=== PATIENT | female | born 1995 | race Caucasian/White ===

== ENCOUNTER 2021-05-11 19:10 | Emergency (ER) | payer BC ==
[~2021-05-11] VITALS: Ht 160 cm; Wt 63.9 kg
--- NOTE | 2021-05-11 19:55 | PHYS DOC ---
General Adult EDM: Chief Complaint: MULTIPLE COMPLAINTS HPI: HPI: Patient is a 25-year-old female who presents to the emergency department for multiple complaints. Patient reports that she was diagnosed with COVID-19 1 month ago and following her diagnosis she experienced fatigue, body aches, headache, lightheadedness with position changes, hand and foot swelling and paresthesias, nasal congestion, shortness of breath, headaches. Patient denies nausea, vomiting, cough, fever. Patient stated that she did a virtual telehealth visit and they asked her about her possible Lyme disease exposure. Patient reports that a month ago she found a tick on her cat but was unsure if she ever had a tick on her so she was concerned after her telehealth visit that she may have Lyme disease. (ROSA MARX APRN) Review of Systems: Review of Systems: Constitutional: negative unless reported in HPI Eyes: negative unless reported in HPI HENT: negative unless reported in HPI Respiratory: negative unless reported in HPI Cardiovascular: negative unless reported in HPI GI: negative unless reported in HPI : negative unless reported in HPI Musculoskeletal: negative unless reported in HPI Integument: negative unless reported in HPI Neurologic: negative unless reported in HPI Endocrine: negative unless reported in HPI Lymphatic: negative unless reported in HPI Psychiatric: negative unless reported in HPI (ROSA MARX APRN) Allergies: Allergies: Allergies Coded Allergies Type Severity Reaction Last Updated Verified No Known Drug Allergies 05/11/21 No (ROSA MARX APRN) Physical Exam: PE: Constitutional: Well developed, well nourished, no acute distress, non-toxic appearance. [] HENT: Normocephalic, atraumatic, bilateral external ears normal, oropharynx moist, no oral exudates, nose normal. [] Eyes: PERRL, 4 mm bilaterally, EOMI, conjunctiva normal, no discharge. [] Neck: Normal range of motion, no tenderness, supple, no stridor. [] Cardiovascular:Heart rate regular rhythm, no murmur [] Lungs & Thorax: Bilateral breath sounds clear to auscultation [] Abdomen: Bowel sounds normal, soft, no tenderness, no masses, no pulsatile mass es. [] Skin: Warm, dry, no erythema, no rash. [] Back: Normal range of motion Extremities: No tenderness, no cyanosis, no clubbing, ROM intact, no edema. [] Neurologic: Alert and oriented X 3, normal motor function, normal sensory function, no focal deficits noted, equal strengths, patient moving all 4 extremities equally, no pronator drift. [] Psychologic: Affect normal, judgement normal, mood normal. [] (ROSA MARX APRN) Current Patient Data: Labs: Laboratory Tests Test 05/11/21 20:06 05/11/21 20:35 05/11/21 20:41 White Blood Count 5.3 x10^3/uL Red Blood Count 4.51 x10^6/uL Hemoglobin 13.4 g/dL Hematocrit 39.4 % Mean Corpuscular Volume 87 fL Mean Corpuscular Hemoglobin 30 pg Mean Corpuscular Hemoglobin Concent 34 g/dL Red Cell Distribution Width 14.3 % Platelet Count 220 x10^3/uL Neutrophils (%) (Auto) 46 % Lymphocytes (%) (Auto) 42 % Monocytes (%) (Auto) 8 % Eosinophils (%) (Auto) 3 % Basophils (%) (Auto) 1 % Neutrophils # (Auto) 2.5 x10^3uL Lymphocytes # (Auto) 2.2 x10^3/uL Monocytes # (Auto) 0.4 x10^3/uL Eosinophils # (Auto) 0.2 x10^3/uL Basophils # (Auto) 0.0 x10^3/uL Sodium Level 139 mmol/L Potassium Level 4.0 mmol/L Chloride Level 102 mmol/L Carbon Dioxide Level 33 mmol/L Anion Gap 4 Blood Urea Nitrogen 15 mg/dL Creatinine 0.7 mg/dL Estimated GFR (Cockcroft-Gault) 102.0 BUN/Creatinine Ratio 21 Glucose Level 92 mg/dL Calcium Level 9.1 mg/dL Total Bilirubin 0.4 mg/dL Aspartate Amino Transf (AST/SGOT) 23 U/L Alanine Aminotransferase (ALT/SGPT) 22 U/L Alkaline Phosphatase 65 U/L Troponin I High Sensitivity < 4 ng/L Total Protein 6.7 g/dL Albumin 3.9 g/dL Albumin/Globulin Ratio 1.4 Influenza Type A (Rapid) Negative Influenza Type B (Rapid) Negative SARS-CoV-2 Antigen (Rapid) Negative Urine Collection Type Unknown Urine Color Yellow Urine Clarity Clear Urine pH 7.0 Urine Specific [place] 1.025 Urine Protein 30 mg/dl Urine Glucose (UA) Neg mg/dL Urine Ketones (Stick) Neg mg/dL Urine Blood Neg Urine Nitrite Neg Urine Bilirubin Neg Urine Urobilinogen Dipstick 0.2 mg/dL Urine Leukocyte Esterase Neg Urine RBC 0 /HPF Urine WBC 0 /HPF Urine Squamous Epithelial Cells Many /LPF Urine Bacteria 0 /HPF Bedside Urine HCG, Qualitative hcg negative Current Medications Medications (Trade) Dose Ordered Sig/Elsy Route PRN Reason Start Time Stop Time Status Last Admin Dose Admin Sodium Chloride 1,000 ml @ 1,000 mls/hr 1X ONCE IV 05/11/21 20:00 05/11/21 20:59 DC 05/11/21 20:00 (ROSA MARX APRN) EKG: EKG: EKG performed by ER staff at 2013 shows sinus rhythm with a rate of 78, QTc of 441, no STEMI read by Dr. Penaloza. [] (ROSA MARX APRN) Radiology/Procedures: Radiology/Procedures: []PROCEDURE: PORTABLE CHEST 1V EXAM: CHEST ONE VIEW. HISTORY: Shortness of breath. COMPARISON: None. FINDINGS: A frontal view of the chest is obtained. There are no confluent infiltrates. There is no pneumothorax or pleural effusion. The heart is not enlarged. IMPRESSION: 1. No confluent infiltrates. Electronically signed by: Fabián Mcclain MD (05/11/2021 8:32 PM) [facility] DICTATED AND SIGNED BY: KENNEY MCCLAIN MD DATE: 05/11/212031 CC: MIYA PENALOZA MD; ROSA MARX APRN; PCP,NO ~MTH0 0 (ROSA MARX APRN) Heart Score: C/O Chest Pain: No Risk Factors: Risk Factors: DM, Current or recent (<one month) smoker, HTN, HLP, family history of CAD, obesity. Risk Scores: Score 0 - 3: 2.5% MACE over next 6 weeks - Discharge Home Score 4 - 6: 20.3% MACE over next 6 weeks - Admit for Clinical Observation Score 7 - 10: 72.7% MACE over next 6 weeks - Early Invasive Strategies (ROSA MARX APRN) Course & Med Decision Making: Course & Med Decision Making Pertinent Labs and Imaging studies reviewed. (See chart for details) [] Patient presents to the emergency department for multiple complaints after being diagnosed with COVID-19 1 month ago. Patient is reporting body aches, bilateral hand and feet swelling and paresthesias, fatigue, lightheadedness with position changes, shortness of breath, congestion, headaches. Work-up in the ER consisted of blood work, urinalysis and EKG. Patient treated with IV fluids for her lightheadedness which is likely orthostatic hypotension. Blood work was unremarkable. Urinalysis unremarkable. Negative influenza and COVID. Chest x-ray shows no acute findings. Patient has many symptoms consistent with post COVID symptoms. (ROSA MARX APRN) Course & Med Decision Making Did not see or evaluate patient. 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 Agree with LOG CHAIN WORKER's work-up and disposition per note (MIYA PENALOZA MD) Dragon Disclaimer: Dragon Disclaimer: This electronic medical record was generated, in whole or in part, using a voice recognition dictation system. (ROSA MARX APRN) Departure Departure: Impression: Primary Impression: Fatigue Qualified Codes: R53.83 - Other fatigue Disposition: HOME / SELF CARE / HOMELESS Condition: GOOD Referrals: PCP,PERRY (PCP) YASSINE OLMSTEAD MD Patient Instructions: Fatigue Additional Instructions: You were seen in the emergency department for multiple complaints. Many of th michael complaints are consistent with post-COVID symptoms. Your work-up in the ER was unremarkable. At this time, we do not find an emergent cause for your symptoms. Please follow-up with your primary care provider tomorrow regarding your ER visit. Return to the emergency department if you develop shortness of breath, chest pain, high fevers refractory to treatment, intractable nausea or vomiting, unilateral weakness, confusion, speech changes, loss of vision, inability to ambulate. ROSA MARX APRN May 11, 2021 19:55 MIYA PENALOZA MD May 11, 2021 21:36
[2021-05-11] MEDS ORDERED: IV NORMAL SALINE 1,000ML 1,000 ML IV ONE (20:00)
[2021-05-11 20:27] LABS: BASO % 1 % (0-3); EOS # 0.2 x10^3/uL (0.0-0.7); EOS % 3 % (0-3); HEMATOCRIT 39.4 % (36.0-47.0); HEMOGLOBIN 13.4 g/dL (12.0-15.5); LYMPH # 2.2 x10^3/uL (1.0-4.8); LYMPH % 42 % (24-48); MEAN CORPUSCULAR HEMOGLOBIN 30 pg (25-35); MEAN CORPUSCULAR HGB CONC 34 g/dL (31-37); MEAN CORPUSCULAR VOLUME 87 fL (79-100); MONO # 0.4 x10^3/uL (0.0-1.1); MONO % 8 % (0-9); NEUT # 2.5 x10^3uL (1.8-7.7); NEUT % 46 % (31-73); PLATELET COUNT 220 x10^3/uL (140-400); RED BLOOD COUNT 4.51 x10^6/uL (3.50-5.40); RED CELL DISTRIBUTION WIDTH 14.3 % (11.5-14.5); WHITE BLOOD COUNT 5.3 x10^3/uL (4.0-11.0)
--- NOTE | 2021-05-11 20:29 | EKG ---
[address] [address] Test Date: 2021-05-11 Test Time: 20:14:30 Pat Name: FAM PEDERSEN Department: Room: Gender: F Manufacturing Technician: GRACIELA : 1995 Requested By: ROSA MARX Order Number: [id number] Reading MD: Enoch Floyd Measurements Intervals [place] Rate: 78 P: 59 AK: 154 QRS: 79 QRSD: 96 T: 40 QT: 384 QTc: 441 Interpretive Statements SINUS RHYTHM INCOMPLETE RIGHT BUNDLE BRANCH BLOCK OTHERWISE NORMAL ECG RI6.02 No previous ECG available for comparison Electronically Signed On 05-12-2021 15:01:57 [employer] by Enoch Floyd
[2021-05-11 20:35] LABS: CALCIUM 9.1 mg/dL (8.5-10.1); CREATININE 0.7 mg/dL (0.6-1.0)
--- NOTE | 2021-05-11 20:35 | RAD ---
EXAM: CHEST ONE VIEW. HISTORY: Shortness of breath. COMPARISON: None. FINDINGS: A frontal view of the chest is obtained. There are no confluent infiltrates. There is no pneumothorax or pleural effusion. The heart is not en larged. IMPRESSION: 1. No confluent infiltrates. Electronically signed by: Fabián Mcclain MD (05/11/2021 8:32 PM) [facility]
[2021-05-11 20:39] LABS: INFLUENZA A PATIENT NEGATIVE (NEGATIVE); INFLUENZA B PATIENT NEGATIVE (NEGATIVE)
[2021-05-11 20:40] LABS: ALBUMIN 3.9 g/dL (3.4-5.0); ALBUMIN/GLOBULIN RATIO 1.4 (1.0-1.7); TOTAL BILIRUBIN 0.4 mg/dL (0.2-1.0); TOTAL PROTEIN 6.7 g/dL (6.4-8.2)
[2021-05-11 20:58] VITALS: BP 123/85
[2021-05-11 21:02] LABS: BACTERIA,URINE 0 /HPF (0-FEW); BILIRUBIN,URINE NEG (NEG); CLARITY,URINE CLEAR; COLOR,URINE YELLOW; GLUCOSE,URINE NEG (NEG); NITRITE,URINE NEG (NEG); RBC,URINE 0 /HPF (0-2); UROBILINOGEN,URINE 0.2 mg/dL (0.2 mg/dL); WBC,URINE 0 /HPF (0-4)
[2021-05-11 21:03] LABS: SQUAMOUS EPITHELIAL CELL,UR MANY /LPF
== END 2021-05-11 21:23 | disposition home or self-care (01) ==
LOC: ER 19:10
DX: R53.83 Other fatigue (principal); R51.9 Headache, unspecified; R42 Dizziness and giddiness; R20.2 Paresthesia of skin; R06.02 Shortness of breath; Z20.822 Contact with and (suspected) exposure to COVID-19
CPT/HCPCS: 36415; 71045; 80053; 81001; 81025; 84484; 85025; 87428; 93005; 96360; 99285; J7030